=== PATIENT | male | born 1985 | race Caucasian/White ===

== ENCOUNTER 2017-10-08 04:14 | Inpatient (IN) | payer MEDICAID ==
[~2017-10-08] VITALS: Ht 180.3 cm; Wt 101.5 kg
[~2017-10-08 04:14] MED LIST: ACUTANE PO
[2017-10-08] MEDS ORDERED: DIPH,PERTUSS(ACELL),TET VAC/PF 0.5 ML IM-VACC ONE ×2 (05:21→05:30)
[2017-10-08] MEDS ORDERED: BACITRACIN ZINC OINT 500U/GM, 0.9 GM ONE (05:32)
[2017-10-08 05:36] LABS: HEMATOCRIT 52.7 % (39.2-51.8); HEMOGLOBIN 17.8 g/dL (13.7-18.0); WHITE BLOOD COUNT 11.5 x10^3/uL (3.4-10)
[2017-10-08 05:46] LABS: ASPARTATE AMINO TRANSFERASE 29 U/L (15-37); BLOOD UREA NITROGEN 8 mg/dL (7-18)
[2017-10-08 05:50] LABS: ACETAMINOPHEN < 2 mcg/mL (10-30)
[2017-10-08 07:12] LABS: DAU SCREEN DISCLAIMER
[2017-10-08] MEDS ORDERED: TRAZODONE 50MG TABLET PO PRN (09:30)
[2017-10-08] MEDS ORDERED: BISACODYL 10 MG SUPP PR PRN (09:30)
[2017-10-08] MEDS: HEPARIN 5,000 UNITS/ML, 1ML SQ SCH ×2 (09:30→17:30)
[2017-10-08] MEDS ORDERED: ONDANSETRON ODT 4 MG PO PRN (09:30)
[2017-10-08] MEDS ORDERED: DOCUSATE 100 MG CAPSULE PO PRN (09:30)
[2017-10-08] MEDS ORDERED: ONDANSETRON 2MG/ML, 2ML IVPush PRN (09:30)
[2017-10-08] MEDS: POTASSIUM CHLORIDE 20 MEQ, MAGNESIUM SULFATE 2 GM, THIAMINE 100 MG, MVI ADULT 10 ML, FO... IV SCH ×2 (12:11→19:38)
[2017-10-08 13:30] VITALS: BP 136/82
[2017-10-08 19:26] VITALS: BP 142/93
[2017-10-08 19:34] VITALS: BP 111/64
[2017-10-09] MEDS: HEPARIN 5,000 UNITS/ML, 1ML SQ SCH ×3 (00:40→17:37)
[2017-10-09 03:20] VITALS: BP 129/91
[2017-10-09 05:25] LABS: HEMATOCRIT 49.5 % (39.2-51.8); HEMOGLOBIN 16.8 g/dL (13.7-18.0); WHITE BLOOD COUNT 9.5 x10^3/uL (3.4-10)
[2017-10-09 05:49] LABS: BLOOD UREA NITROGEN 15 mg/dL (7-18)
[2017-10-09 07:49] VITALS: BP 135/94
[2017-10-09] MEDS: FAMOTIDINE 20 MG TABLET PO SCH (09:24)
[2017-10-09] MEDS ORDERED: SODIUM CHLORIDE 0.9% 1,000 ML IV SCH (09:30)
[2017-10-09 14:22] VITALS: BP 133/90
[2017-10-09] MEDS: POTASSIUM CHLORIDE 20 MEQ, MAGNESIUM SULFATE 2 GM, THIAMINE 100 MG, MVI ADULT 10 ML, FO... IV SCH (15:22)
[2017-10-09 20:28] VITALS: BP 133/87
[2017-10-10] MEDS: HEPARIN 5,000 UNITS/ML, 1ML SQ SCH ×2 (01:06→09:30)
[2017-10-10 03:28] VITALS: BP 126/78
[2017-10-10 05:40] LABS: BLOOD UREA NITROGEN 13 mg/dL (7-18)
[2017-10-10 07:23] VITALS: BP 121/82
[2017-10-10] MEDS: FAMOTIDINE 20 MG TABLET PO SCH (09:14)
[2017-10-10] MEDS ORDERED: SODIUM CHLORIDE 0.9% 1,000 ML IV SCH (09:30)
[2017-10-10 14:05] VITALS: BP 127/86
[2017-10-10] MEDS ORDERED: FLU VACC QS2017-18 (36MOS+) UP/PF 0.5 ML IM-VACC ONE (15:00)
== END 2017-10-10 15:50 | disposition home or self-care (01) | DRG 918 ==
LOC: ED 05:54 → EDIP 07:37 → OBSVTOIN 09:22 → 4EST 11:09 → DCLOUNGE 10-10 15:43
PROVIDERS: ADMIT Hospitalist; ATTEND Internal Medicine
DX: T42.8X2A Poisoning by antiparkinsonism drugs and other central muscle-tone depressants, intentional self-harm, initial encounter (principal); N17.9 Acute kidney failure, unspecified; F10.120 Alcohol abuse with intoxication, uncomplicated; T39.312A Poisoning by propionic acid derivatives, intentional self-harm, initial encounter; Y92.89 Other specified places as the place of occurrence of the external cause; F14.10 Cocaine abuse, uncomplicated; F32.9 Major depressive disorder, single episode, unspecified; G89.29 Other chronic pain; S61.512A Laceration without foreign body of left wrist, initial encounter; X78.9XXA Intentional self-harm by unspecified sharp object, initial encounter; Y93.89 Activity, other specified; M54.9 Dorsalgia, unspecified; Z23 Encounter for immunization
CPT/HCPCS: 36415; 80048; 80053; 80307; 80329; 82040; 83735; 84100; 84439; 84443; 85025; 90471; 90686; 90715; G0378; J1644; J3411; J3475; J3480; J7042; G0479; G0480; J7030

== ENCOUNTER 2017-10-17 00:34 | Emergency (ER) | payer MEDICAID ==
[~2017-10-17] VITALS: Ht 177.8 cm; Wt 103.3 kg
[2017-10-17] MEDS ORDERED: IBUPROFEN 200 MG TABLET ONE ×2 (01:13→01:45)
[2017-10-17] MEDS ORDERED: METHOCARBAMOL 750 MG TABLET ONE ×2 (01:13→01:45)
[2017-10-17] MEDS ORDERED: IBUPROFEN 200 MG TABLET PO ONE (01:30)
[2017-10-17] MEDS ORDERED: METHOCARBAMOL 750 MG TABLET PO ONE (01:30)
[2017-10-17 02:11] LABS: MICROSCOPIC NOT IND
[2017-10-17 02:23] LABS: CULTURE INDICATED? NO
[2017-10-17 03:25] VITALS: BP 133/81
== END 2017-10-17 03:28 | disposition home or self-care (01) ==
LOC: ED 02:06
DX: M54.5 Low back pain (principal); F32.9 Major depressive disorder, single episode, unspecified
CPT/HCPCS: 81003; 99283